=== PATIENT | female | born 1970 ===

== ENCOUNTER 2021-03-24 06:04 | Inpatient (IN) ==
[2021-03-24] MEDS ORDERED: CeFAZolin Syr 2,000MG/20 ML 2,000 MG/20 ML SYRINGE IVPB ONE (06:25)
[2021-03-24] MEDS ORDERED: MetroNIDAZOLE 500 MG/100 ML 500 MG/100 ML BAG IVPB ONE (06:26)
[2021-03-24] MEDS ORDERED: Ringers Solution, Lactated 1,000 ML IVC SCH ×2 (06:30→10:57)
[2021-03-24] MEDS ORDERED: *HR* Propofol 200 MG/20 ML VIAL IVP ONE (07:08)
[2021-03-24] MEDS ORDERED: *HR* Succinylcholine 200 MG/10 ML VIAL IVP ONE (07:08)
[2021-03-24] MEDS ORDERED: *HR* FentaNYL (PF) 100 MCG/2 ML VIAL ONE ×2 (07:08→08:16)
[2021-03-24] MEDS ORDERED: *HR* Midazolam HCl 5 MG/5 ML VIAL IVP ONE (07:08)
[2021-03-24] MEDS ORDERED: Lidocaine -MPF 4% 5 ML AMPUL ONE (07:08)
[2021-03-24] MEDS ORDERED: *HR* Rocuronium Bromide 50 MG/5 ML VIAL ONE ×2 (07:08→08:50)
[2021-03-24] MEDS ORDERED: Ondansetron 4 MG/2 ML VIAL ONE (07:08)
[2021-03-24] MEDS ORDERED: Lidocaine -MPF 2% 2 ML VIAL ONE (07:08)
[2021-03-24] MEDS ORDERED: *HR* Belladonna Alkaloids/Opium 30 MG RECTAL SUPPOSITORY RC ONE (07:19)
[2021-03-24] MEDS ORDERED: Acetaminophen IV 1,000 MG/100 ML BAG IVPB ONE (07:34)
[2021-03-24] MEDS ORDERED: *HR* Vasopressin 20 UNIT/ML VIAL ONE (07:34)
[2021-03-24] MEDS ORDERED: *HR* OxyCODONE Immed Rel 5 MG TABLET PO PRN (08:03)
[2021-03-24] MEDS ORDERED: Promethazine 6.25 MG in Water for inj. (sterile) 20 ML IVPB PRN (08:03)
[2021-03-24] MEDS ORDERED: *HR* HYDROmorphone PF 0.5 MG/0.5 ML SYRINGE IVP PRN (08:03)
[2021-03-24] MEDS ORDERED: Ondansetron 4 MG/2 ML VIAL IVP PRN ×2 (08:03→10:57)
[2021-03-24] MEDS ORDERED: Sugammadex Sodium 200 MG/2 ML VIAL IV ONE (09:38)
[2021-03-24] MEDS ORDERED: *HR* HYDROMORPHONE 2 MG/ML VIAL ONE (09:46)
[2021-03-24] MEDS ORDERED: *HR* HYDROmorphone 20 MG/20 ML PCA IVC PRN (10:57)
[2021-03-24] MEDS ORDERED: Naloxone 0.4 MG/ML INJ IVP PRN (10:57)
[2021-03-24] MEDS ORDERED: Estradiol 0.1 MG PATCH (WEEKLY) TD SCH (11:00)
[2021-03-24] MEDS: lisinopriL 20 MG TABLET PO SCH (21:07)
[2021-03-25 04:27] LABS: Basophils % 0.1 %; Hematocrit 35.7 % (35.3-44.9); Hemoglobin 11.9 g/dL (11.5-15.4); Immature Granulocytes % 0.3 % (0-4); Lymphocytes # 1.2 K/mcL (0.6-4.6); Lymphocytes % 8.3 %; Mean Corpuscular HGB Conc 33.3 g/dL (31.6-35.5); Mean Corpuscular Hemoglobin 28.5 pg (28.0-33.3); Mean Corpuscular Volume 85.4 fL (83.0-100.0); Mean Platelet Volume 10.4 fL (9.4-12.4); Monocytes # 1.1 K/mcL (0.0-1.3); Monocytes % 8.1 %; Neutrophils # 11.8 K/mcL (1.6-8.9); Platelet Count 294 K/mcL (140-400); Red Blood Count 4.18 M/mcL (3.82-4.97); Segmented Neutrophils % 83.2 %; White Blood Count 14.2 K/mcL (4.3-11.1)
[2021-03-25 04:46] LABS: eGFR For African Americans > 60 (> 60); eGFR For Non-African Americans > 60 (> 60)
[2021-03-25] MEDS ORDERED: *HR* OxyCODONE/APAP 5/325 TABLET PO PRN (07:16)
[2021-03-25] MEDS: lisinopriL 20 MG TABLET PO SCH (08:25)
[2021-03-25] MEDS: *HR* OxyCODONE/APAP 10/325 TABLET PO PRN (18:04)
[2021-03-26] MEDS: *HR* OxyCODONE/APAP 10/325 TABLET PO PRN ×2 (06:11→12:09)
[2021-03-26 07:46] VITALS: BP 106/68; PULSE 89; TEMP 98.8; O2SAT 96
[2021-03-26] MEDS: lisinopriL 20 MG TABLET PO SCH (08:04)
== END 2021-03-26 19:30 | disposition home or self-care (01) | DRG 519 ==
LOC: SAMDAY 06:04 → 1NENUOBS 10:50
PROVIDERS: ADMIT Orthopaedic Surgery Orthopaedic Surgery of the Spine; ATTEND Orthopaedic Surgery Orthopaedic Surgery of the Spine